=== PATIENT | female | born 1945 | race Caucasian/White ===

== ENCOUNTER 2019-04-03 19:30 | Outpatient (RCR) | payer MEDICARE, OTHER, MEDICAID, SELFPAY ==
[2019-04-03 20:14] LABS: Influenza A by IFA Negative (Negative); Influenza B by IFA Negative (Negative)
== END 2019-04-06 23:59 | disposition home or self-care (01) ==
LOC: LAB 19:30
PROVIDERS: Family Provider Internal Medicine; PCP Internal Medicine; Visit Provider Internal Medicine
DX: R50.9 Fever, unspecified (principal)
CPT/HCPCS: 87804

== ENCOUNTER → 2021-03-08 09:45 | Outpatient (BNVA) | payer MEDICARE, OTHER, MEDICAID, SELFPAY | PROVIDERS: Family Provider Internal Medicine; PCP Internal Medicine; Visit Provider Internal Medicine Rheumatology | DX: M25.50 Pain in unspecified joint (principal); J34.0 Abscess, furuncle and carbuncle of nose; R76.8 Other specified abnormal immunological findings in serum; Z79.899 Other long term (current) drug therapy; E66.01 Morbid (severe) obesity due to excess calories; Z87.891 Personal history of nicotine dependence | CPT/HCPCS: 99204 ==

== ENCOUNTER → 2021-05-12 11:02 | Outpatient (BNVA) | payer MEDICARE, OTHER, MEDICAID, SELFPAY | PROVIDERS: Family Provider Internal Medicine; PCP Internal Medicine; Visit Provider Internal Medicine Rheumatology | DX: M19.90 Unspecified osteoarthritis, unspecified site (principal); M35.00 Sjogren syndrome, unspecified; R70.0 Elevated erythrocyte sedimentation rate; R79.82 Elevated C-reactive protein (CRP); J44.9 Chronic obstructive pulmonary disease, unspecified; E66.01 Morbid (severe) obesity due to excess calories; Z68.42 Body mass index [BMI] 45.0-49.9, adult; Z99.81 Dependence on supplemental oxygen | CPT/HCPCS: 99214 ==

== ENCOUNTER → 2021-09-08 11:00 | Outpatient (BNVA) | payer MEDICARE, OTHER, MEDICAID, SELFPAY | PROVIDERS: Family Provider Internal Medicine; PCP Internal Medicine; Visit Provider Internal Medicine Rheumatology | DX: M19.90 Unspecified osteoarthritis, unspecified site (principal); M35.00 Sjogren syndrome, unspecified; R70.0 Elevated erythrocyte sedimentation rate; R79.82 Elevated C-reactive protein (CRP); E66.01 Morbid (severe) obesity due to excess calories | CPT/HCPCS: 99214 ==

== ENCOUNTER 2022-08-01 11:57 | Emergency (ER) | payer MEDICARE, OTHER, MEDICAID, SELFPAY ==
[2022-08-01 11:53] VITALS: BP 115/57; PULSE 107; RESP 19; TEMP 36.9; O2SAT 95; BMI 48.7
--- NOTE | 2022-08-01 11:57 | W.ED.GENADLT ---
HPI - General Adult General: Chief complaint: Arrhythmia/Palpitations Stated complaint: HIGH HR Source: patient Mode of arrival: ambulatory History of Present Illness: 77-year-old female who presents to the emergency room with complaints of rapid heart rate. This morning she evidently at the [facility] had a heart rate in the 160s to 170s her attending was called and directed her to the emergency room by the time EMS arrived when she arrived here her heart rate was right around 100 and remained there throughout the visit. She is completely asymptomatic she denies any orthopnea or any PND any chest pain no dysuria urgency or frequency she has been treated for UTI recently. She received all of her medications routinely this morning. Onset (ago): minute(s) Relieving factors: none Exacerbating factors: none Associated symptoms: Deny chest pain, confusion, cough, diaphoresis, decreased appetite, dyspnea, fevers/chills, headache(s), malaise, nausea, rash, palpitations, seizures, short of breath, syncope, vomiting or weakness Treatments prior to arrival: none Review of Systems Const: Denies: fever(s), chills, malaise or diaphoresis ENMT: Denies: throat pain, ear or mastoid pain, nasal discharge or nasal congestion Card: Denies: chest pain, palpitations or syncope Resp: Denies: dyspnea GI: Denies: nausea or vomiting : Denies: flank pain, difficulty voiding, dysuria, urinary frequency or urinary urgency Skin/Breast: Denies: rash Neuro: Denies: headache(s) or confusion PFSH ED PFSH: Medical History Asthma CHF (congestive heart failure) CKD (chronic kidney disease) stage II Depression Dry eye syndrome Elevated C-reactive protein Elevated erythrocyte sedimentation rate GERD (gastroesophageal reflux disease) HTN (hypertension) Hyperlipidemia Hypothyroid Inflammatory arthritis Morbid obesity Nasal septal ulcer MARKEL (obstructive sleep apnea) Polyarthralgia Positive NORBERT (antinuclear antibody) Primary Sjogren's syndrome Rhinitis Sleep apnea Surgical History History of cholecystectomy History of hip replacement History of hysterectomy Social History Smoking and tobacco status: never smoked Physical Exam Const: GENERAL APPEARANCE: cooperative and comfortable ORIENTATION/CONSCIOUSNESS: Yes awake, Yes oriented to person, Yes oriented to place and Yes oriented to time HENMT: COMMON NORMALS: normocephalic, atraumatic and hearing grossly normal bilaterally HEAD & SCALP: normocephalic and atraumatic Resp: COMMON NORMALS: normal respiratory effort, No retractions, No use of accessory muscles and clear to auscultation bilaterally AUSCULTATION: clear to auscultation bilaterally Cardio: COMMON NORMALS: regular rate, regular rhythm and No murmurs present (Cardio) RATE: regular rate RHYTHM: regular rhythm GI: COMMON NORMALS: Soft to palpation and No hepatosplenomegaly present AUSCULTATION: Yes normoactive bowel sounds PALPATION: Yes Soft to palpation, No Tenderness to palpation present (GI), No Guarding due to palpation present (GI) and Yes No hepatosplenomegaly present Extremity: COMMON NORMALS: normal to inspection, capillary refill normal and no calf tenderness GENERAL: Yes edema (2+ lower extremity) Neuro: SENSORIUM/ORIENTATION: Yes oriented to person, Yes oriented to place and Yes oriented to time Skin: COMMON NORMALS: no rashes or lesions noted GENERAL SKIN EXAM: no rashes or lesions noted Course Vital Signs: Vital signs: Vital Signs Temperature 98.5 F 08/01/22 11:53 Pulse Rate 90 08/01/22 12:56 Respiratory Rate 24 H 08/01/22 12:56 Blood Pressure 125/62 08/01/22 12:56 Pulse Oximetry 97 08/01/22 12:56 Oxygen Delivery Me thod Nasal Cannula 08/01/22 12:56 Oxygen Flow Rate 3 08/01/22 12:56 [facility] - General Adult Medical Decision Making Exam unremarkable heart rate is remained well controlled infection improve the longer she was here she is doing well at this point no further symptoms we will discharge patient home with a 48-hour Holter monitor to see if she is having any kind of breakthrough arrhythmias. Her TSH was slightly elevated we will bump her Synthroid to 100 mcg daily. Follow-up through the [facility] with her attending doctor. Medical Records I reviewed the patient's medical records. Lab Data I reviewed the patient's lab results. 08/01/22 12:00 08/01/22 12:00 Radiology Impressions Chest X-Ray 08/01/22 12:17 IMPRESSION: Stable chest radiograph. No pneumonia. Laboratory Results WBC 7.5 10^3/uL (4.0-10.0) 08/01/22 12:00 RBC 4.10 10^6/uL (4.1-5.3) 08/01/22 12:00 Hgb 12.0 g/dL (11.5-15.3) 08/01/22 12:00 Hct 39.7 % (37.0-47.0) 08/01/22 12:00 MCV 96.8 fl (81-99) 08/01/22 12:00 MCH 29.3 pg (28.0-34.0) 08/01/22 12:00 MCHC 30.2 g/dL (30.0-36.0) 08/01/22 12:00 RDW 13.7 % (12.1-15.1) 08/01/22 12:00 Plt Count 309 10^3/cmm (130-400) 08/01/22 12:00 MPV 9.8 fL (7.4-10.4) 08/01/22 12:00 Neut % (Auto) 61.4 % 08/01/22 12:00 Lymph % (Auto) 26.7 % 08/01/22 12:00 [place] % (Auto) 8.7 % 08/01/22 12:00 Eos % (Auto) 2.7 % 08/01/22 12:00 Baso % (Auto) 0.1 % 08/01/22 12:00 Neut # (Auto) 4.59 10^3/uL (1.8-7.7) 08/01/22 12:00 Lymph # (Auto) 2.0 10^3/uL (0.8-4.8) 08/01/22 12:00 [place] # (Auto) 0.7 10^3/uL (0.2-0.9) 08/01/22 12:00 Eos # (Auto) 0.2 10^3/uL (0.0-0.8) 08/01/22 12:00 Baso # (Auto) 0.0 10^3/uL (0.0-0.1) 08/01/22 12:00 Nucleated RBC % (auto) 0 % 08/01/22 12:00 Nucleated RBCs # 0.0 /100WBC 08/01/22 12:00 Sodium 140 mmol/L (136-145) 08/01/22 12:00 Potassium 4.1 mmol/L (3.5-5.1) 08/01/22 12:00 Chloride 99 mmol/L (98-107) 08/01/22 12:00 Carbon Dioxide 34 mmol/L (22-29) H 08/01/22 12:00 Anion Gap 11.1 (5-19) 08/01/22 12:00 BUN 11 mg/dL (8-23) 08/01/22 12:00 Creatinine 0.7 mg/dL (0.5-0.9) 08/01/22 12:00 GFR Calculation Not Reportable 08/01/22 12:00 Glucose 121 mg/dL (65-115) H 08/01/22 12:00 Calculated Osmolality 291 mOsm/kg (285-295) 08/01/22 12:00 Calcium 9.0 mg/dL (8.5-10.5) 08/01/22 12:00 Total Bilirubin 0.3 mg/dL (0.15-1.2) 08/01/22 12:00 AST 25 U/L (0-32) 08/01/22 12:00 ALT 8 U/L (0-33) 08/01/22 12:00 Alkaline Phosphatase 160 U/L (35-105) H 08/01/22 12:00 Troponin T Baseline 21 ng/L (0-10) H 08/01/22 12:00 Troponin T 120 Minute 23.11 ng/L (0-10) H 08/01/22 14:37 Delta Troponin T 2.11 ABS# (0-10) 08/01/22 14:37 NT-Pro-B Natriuret Pep 592 pg/mL (0-450) H 08/01/22 12:00 Total Protein 6.8 g/dL (6.6-8.7) 08/01/22 12:00 Albumin 3.3 g/dL (3.5-5.2) L 08/01/22 12:00 Globulin 3.5 g/dL (1.3-4.6) 08/01/22 12:00 TSH 6.04 uIU/mL (0.27-4.20) H 08/01/22 12:00 Urine Color Light yellow (Yellow) 08/01/22 13:49 Urine Appearance Clear (CLEAR) 08/01/22 13:49 Urine pH 7 (5-7) 08/01/22 13:49 Ur Specific [place] 1.010 (1.005-1.030) 08/01/22 13:49 Urine Protein Neg (Negative) 08/01/22 13:49 Urine Glucose (UA) Norm (Normal) 08/01/22 13:49 Urine Ketones Negative (Negative) 08/01/22 13:49 Urine Blood Neg (Negative) 08/01/22 13:49 Urine Nitrate Negative (Negative) 08/01/22 13:49 Urine Bilirubin Neg (Negative) 08/01/22 13:49 Urine Urobilinogen Norm mg/dL (Negative) 08/01/22 13:49 Ur Leukocyte Esterase Negative (Negative) 08/01/22 13:49 Discharge Plan Discharge Patient Disposition: Home Clinical Impression: Sinus tachycardia, Hypothyroidism Condition: Stable Prescriptions: New Synthroid 100 mcg tablet 100 mcg PO DAILY Qty: 30 0RF Discontinued levothyroxine 88 mcg tablet 88 mcg PO DAILY@06 No Action fluticasone propionate [Allergy Relief (fluticasone)] 50 mcg/actuation spray,suspension 1 spray intranasal BID@ Rx Instructions: administer into each nostril Breo Ellipta 200-25 mcg/dose blister with device 1 inh inhalation DAILY@07 duloxetine 60 mg capsule,delayed release(DR/EC) 60 mg PO DAILY@19 hydroxyzine HCl 25 mg tablet 25 mg PO Q6H PRN (Reason: Itching) metoprolol succinate 100 mg tablet extended release 24 hr 100 mg PO DAILY@07 Tylenol 325 mg Tablet 650 mg PO Q6H PRN (Reason: Pain) Miralax 17 gram Powder In Packet 17 g PO DAILY@07 Zofran 4 mg Tablet 4 mg PO Q6H PRN (Reason: Nausea And Vomiting) simvastatin 5 mg Tablet 5 mg PO DAILY@19 Protonix 40 mg Tablet,Delayed Release (Dr/Ec) 40 mg PO DAILY@07 [place] Nasal 0.65 % Aerosol,[place] 1 spray INTRANASAL BID@, melatonin 1 mg Tablet 1 mg PO BEDTIME@ levocetirizine 5 mg Tablet 5 mg PO DAILY@07 Natural Balance Tears 0.1-0.3 % Drops 1 drp OPHTHALMIC (EYE) Q8H PRN (Reason: Dry Eye(S)) Rx Instructions: both eyes Discharge Orders: Discharge ED (Routine); Ordered 08/01/22 Ordered By: Piyush Maravilla Referrals: Josh Falk MD [Primary Care Provider] - Discharge Diet: Usual diet Discharge Activity: Resume usual activity Patient Instructions: Opioid Safety, Pain Management Activity Restrictions/Additional Instructions: Case management will set up an outpatient 48-hour Holter monitor. We did increase your Synthroid Dr. Falk will follow-up with that in the [facility] in 6 to 8 weeks to recheck your thyroid levels Coding Level of Care Code ED Online Affiliate Marketing Manager for [facility]
--- NOTE | 2022-08-01 12:02 | ECG_ITS ---
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 Measurements Intervals [place] Rate: 102 P: 54 TN: 148 QRS: 17 QRSD: 74 T: 66 QT: 348 QTc: 454 Interpretive Statements SINUS TACHYCARDIA LOW QRS VOLTAGE IN PRECORDIAL LEADS [QRS DEFLECTION < 1.0 mV IN CHEST LEADS] Compared to ECG 09/11/2017 16:54:50 Sinus rhythm no longer present Electronically Signed On 08-01-2022 17:23:46 CDT by Abdoul Desai M.D. [id number]
[2022-08-01 12:06] VITALS: BP 93/72; PULSE 103; RESP 20; O2SAT 95
[2022-08-01 12:06] LABS: Basophils % 0.1 %; Eosinophils # 0.2 10^3/uL (0.0-0.8); Eosinophils % 2.7 %; Hematocrit 39.7 % (37.0-47.0); Lymphocytes % 26.7 %; Mean Corpuscular HGB Conc 30.2 g/dL (30.0-36.0); Mean Corpuscular Hemoglobin 29.3 pg (28.0-34.0); Mean Corpuscular Volume 96.8 fl (81-99); Mean Platelet Volume 9.8 fL (7.4-10.4); Monocytes # 0.7 10^3/uL (0.2-0.9); Monocytes % 8.7 %; Neutrophils # 4.59 10^3/uL (1.8-7.7); Neutrophils % 61.4 %; Nucleated Red Blood Cells % 0 %; Platelet Count 309 10^3/cmm (130-400); Red Cell Distribution Width 13.7 % (12.1-15.1); White Blood Count 7.5 10^3/uL (4.0-10.0)
--- NOTE | 2022-08-01 12:17 | XR_ITS ---
WS: [id number] PORTABLE CHEST HISTORY: dyspnea/cough COMPARISON: 09/13/2017 Hyperinflated lungs. Patient is imaged in a lordotic projection. No pneumonia. Lungs are clear and well expanded. No pleural effusion or pneumothorax. Cardiac size: Heart appears enlarged but this is probably exacerbated by lordotic positioning of the patient. Mediastinum/Aorta: Mild atherosclerosis aorta. No osseous abnormality seen. XR/XR chest 1V portable 25211 IMPRESSION: Stable chest radiograph. No pneumonia.
[2022-08-01 12:32] LABS: Alanine Aminotransferase 8 U/L (0-33); Albumin Level 3.3 g/dL (3.5-5.2); Alkaline Phosphatase 160 U/L (35-105); Anion Gap 11.1 (5-19); Aspartate Amino Transferase 25 U/L (0-32); Blood Urea Nitrogen 11 mg/dL (8-23); Carbon Dioxide 34 mmol/L (22-29); Chloride 99 mmol/L (98-107); Globulin 3.5 g/dL (1.3-4.6); Glucose 121 mg/dL (65-115); Osmolality Calculated 291 mOsm/kg (285-295); Potassium 4.1 mmol/L (3.5-5.1); Sodium 140 mmol/L (136-145); Thyroid Stimulating Hormone 6.04 uIU/mL (0.27-4.20); Total Bilirubin 0.3 mg/dL (0.15-1.2); Total Protein 6.8 g/dL (6.6-8.7)
[2022-08-01 12:51] LABS: NT Pro B Type Natriuretic Pept 592 pg/mL (0-450)
[2022-08-01 12:56] VITALS: BP 125/62; PULSE 90; RESP 24; O2SAT 97
[2022-08-01 13:09] LABS: Troponin(5th) Baseline 21 ng/L (0-10)
--- NOTE | 2022-08-01 13:50 | PC.PHAR ---
pt is from [facility] [phone]
[2022-08-01 14:02] LABS: Add Urine Microscopic? NO; Charge for UA Resulting for Rev
[2022-08-01 14:07] LABS: Bilirubin Urine Neg (Negative); Blood Urine Neg (Negative); Glucose Urine UA Norm (Normal); Ketones Urine Negative (Negative); Leukocyte Esterase Urine Negative (Negative); Nitrate Urine Negative (Negative); Protein Urine Neg (Negative); Urine Appearance Clear (CLEAR); Urine Color Light yellow (Yellow); Urobilinogen Urine Norm (Negative); pH Urine 7 (5-7)
--- NOTE | 2022-08-01 14:36 | ECG_ITS ---
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 Measurements Intervals [place] Rate: 76 P: 139 [place]: 149 QRS: 35 QRSD: 87 T: 124 QT: 399 QTc: 449 Interpretive Statements ECTOPIC ATRIAL RHYTHM POSSIBLE LEFT ATRIAL ENLARGEMENT [-0.1mV P-WAVE IN V1/V2] LOW QRS VOLTAGE [QRS DEFLECTION < 0.5/1.0 mV IN LIMB/CHEST LEADS] ABNORMAL QRS-T ANGLE [QRS-T AXIS DIFFERENCE > 60] Compared to ECG 08/01/2022 12:02:29 Ectopic atrial rhythm now present Sinus tachycardia no longer present Electronically Signed On 08-01-2022 17:24:56 CDT by Abdoul Desai M.D. [id number]
[2022-08-01 14:58] LABS: Troponin 5 2HR 23.11 ng/L (0-10)
[2022-08-01 15:00] LABS: Troponin 5 2HR Delta 2.11 ABS# (0-10)
--- NOTE | 2022-08-01 15:57 | PC.SOCIAL ---
Addendum entered by Xenia Mcdonald 09/01/22 07:29: Patient had a follow up appointment with heart care - patient did attend appointment Addendum entered by Xenia Mcdonald 08/18/22 14:53: Patient has a follow up appointment scheduled for Tuesday, August 30, 2022 at 10:00 at [facility]. Original Note: Holter Monitor Orders sent to heart care at this time. Clinic to contact [facility] with appt date/time.
== END 2022-08-01 15:32 | disposition home or self-care (01) ==
PROVIDERS: Emergency Provider Family Medicine; PCP Internal Medicine
DX: R00.0 Tachycardia, unspecified (principal); E03.9 Hypothyroidism, unspecified; I13.0 Hypertensive heart and chronic kidney disease with heart failure and stage 1 through stage 4 chronic kidney disease, or unspecified chronic kidney disease; N18.2 Chronic kidney disease, stage 2 (mild); I50.9 Heart failure, unspecified; E78.5 Hyperlipidemia, unspecified
CPT/HCPCS: 51701; 71045; 80053; 81003; 83880; 84443; 84484; 85025; 93005; 99285

== ENCOUNTER → 2022-08-29 14:24 | Outpatient (BNVA) | payer MEDICARE, OTHER, MEDICAID, SELFPAY | PROVIDERS: PCP Internal Medicine; Visit Provider Internal Medicine | DX: R00.0 Tachycardia, unspecified (principal); I49.1 Atrial premature depolarization; I49.3 Ventricular premature depolarization | CPT/HCPCS: 93242 ==

== ENCOUNTER 2023-04-27 13:55 | Emergency (ER) | payer MEDICARE, OTHER, MEDICAID, SELFPAY ==
[2023-04-27] VITALS (13 sets, daily range): BP systolic 105–157; BP diastolic 74–107; PULSE 95–220; RESP 16–29; TEMP 36.7; O2SAT 90–99
--- NOTE | 2023-04-27 14:00 | ECG_ITS ---
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 Measurements Intervals [place] Rate: 217 P: 0 MD: 0 QRS: 2 QRSD: 88 T: 163 QT: 197 QTc: 374 Interpretive Statements Possible atrial fibrillation with rapid ventricular rate LOW QRS VOLTAGE IN PRECORDIAL LEADS [QRS DEFLECTION < 1.0 mV IN CHEST LEADS] NONSPECIFIC ST & T-WAVE ABNORMALITY CRITICAL TEST RESULT Compared to ECG 08/01/2022 14:50:21 T-wave abnormality now present Ectopic atrial rhythm no longer present Electronically Signed On 04-27-2023 22:12:27 CDT by Freya Wolff M.D. [id number]
--- NOTE | 2023-04-27 14:07 | W.ED.CHESTPA ---
Documented by User: Piyush Maravilla DO 04/28/23 06:48 HPI - Chest Pain General: Chief Complaint: Chest Pain Stated Complaint: chest pain Time Seen by Provider: 04/27/23 13:57 Source: patient Mode of arrival: EMS History of Present Illness: 78-year-old female presents emergency room via EMS in A-fib rapid ventricular response. She is [facility] in from a prison rate is in the 200-2 20 range. They did do adenosine in the field to 6 and 12 slow the rate down reviewed the rhythm strips look like she had an underlying A-fib flutter. She is complaining of some shortness of breath mild chest discomfort. She was seen in July of last year with a sinus tachycardia. At that time the rate at the highest was a little over 100. Holter monitor done after that showed some rates near 170 but no persistent arrhythmias. Reviewing her medication list she is on metoprolol but she is not on any oral anticoagulants. MD complaint: chest pain Onset (ago): unknown Timing of current episode: constant Prior episodes: Yes Onset: during rest Pain location: substernal Pain radiation: none Relieving factors: nothing Exacerbating factors: nothing Associated symptoms: Reports abdominal pain, dyspnea, nausea and palpitations; Deny fever(s), leg edema, sense of impending doom or vomiting Treatment prior to arrival: none Review of Systems Const: Reports: fatigue and malaise; Denies: fever(s) or chills Card: Reports: chest pain, palpitations, irregular heart rhythm and edema Resp: Reports: dyspnea GI: Reports: abdominal pain and nausea; Denies: vomiting, hematemesis, coffee ground emesis, hematochezia or melena : Reports: oliguria; Denies: flank pain, dysuria, urinary frequency or urinary urgency Musc: Denies: neck pain or back pain Skin/Breast: Denies: rash PFSH ED PFSH: Medical History Elevated C-reactive protein Elevated erythrocyte sedimentation rate Inflammatory arthritis Primary Sjogren's syndrome Nasal septal ulcer Morbid obesity Polyarthralgia Positive NORBERT (antinuclear antibody) Rhinitis CKD (chronic kidney disease) stage II Dry eye syndrome GERD (gastroesophageal reflux disease) Sleep apnea CHF (congestive heart failure) HTN (hypertension) Hypothyroid Hyperlipidemia Asthma Depression MARKEL (obstructive sleep apnea) Surgical History History of hip replacement History of hysterectomy History of cholecystectomy Social History Smoking and tobacco/nicotine status: never used tobacco/nicotine Physical Exam Const: GENERAL APPEARANCE: cooperative NUTRITIONAL APPEARANCE: obese ORIENTATION/CONSCIOUSNESS: Yes awake HENMT: COMMON NORMALS: normocephalic, atraumatic and hearing grossly normal bilaterally HEAD & SCALP: normocephalic and atraumatic Resp: COMMON NORMALS: normal respiratory effort, No retractions and No use of accessory muscles AUSCULTATION: wheezes (mild) Cardio: RATE: tachycardic RHYTHM: abnormal rhythm irregularly irregular GI: COMMON NORMALS: No hepatosplenomegaly present AUSCULTATION: Yes normoactive bowel sounds PALPATION: Yes Tenderness to palpation present (GI) (epigastric), No Guarding due to palpation present (GI) and Yes No hepatosplenomegaly present : COMMON NORMALS: Yes no CVA tenderness BLADDER/KIDNEY EXAM: Yes no CVA tenderness Back/Pelvis: COMMON NORMALS: no CVA tenderness Extremity: COMMON NORMALS: normal to inspection, capillary refill normal, no clubbing, cyanosis or edema, no calf tenderness and no pedal edema Skin: COMMON NORMALS: no rashes or lesions noted GENERAL SKIN EXAM: no rashes or lesions noted Course Vital Signs: Vital signs: Vital Signs Temperature 98.1 F 04/27/23 13:55 Pulse Rate 103 H 04/27/23 20:20 Respiratory Rate 29 H 04/27/23 20:20 Blood Pressure 156/103 04/27/23 20:20 Pulse Oximetry 97 04/27/23 20:20 Oxygen Delivery Me thod Nasal Cannula 04/27/23 20:20 Oxygen Flow Rate 4 04/27/23 20:20 MDM - Chest Pain Medical Decision Making Patient presents afebrile with a heart rate in the 200s. EMS had given adenosine which slowed the rate briefly and exposing underlying A-fib flutter rhythm. Patient was given Cardizem which did improve her rate but never did completely control it she was later switched to amiodarone. Patient's blood pressure initially was elevated then become somewhat softer. Considered giving epi however her map remained above 65. As lab work began to return showed a significant leukocytosis and elevation of her lipase transaminases and T. bili. She also mild acute kidney injury. Lactic acid was drawn and was elevated as well. BNP was markedly elevated. Given her heart rate and difficulty controlling the A-fib rate was concerned about pushing her further into congestive heart failure so a modified sepsis fluid bolus was given. Patient was mildly confused at time family members at the bedside assisted with decision making. They want to keep the patient is a full code. We did attempt to get an MRCP however logistically she did not fit in the EMR tube and we are unable to do so. She had significant gaseous distention her abdomen so we could not get an ultrasound of the common bile duct. CT did show mild dilation of the bile common bile duct. Patient is obviously septic she has been cultured and started on IV antibiotics. She has not required Levophed to this point. She did require some oxygen. After discussion with the family they do wish to keep the patient on full code and want to transfer the patient as we suggested for more definitive care. We initially contacted [facility] emergency they did not have beds available. At change of shift I [facility] the [facility] is working on other transfer options. Care signed out to Dr. Foster at change of shift. See final notes for diagnosis and disposition. I have discussed the patient's case with the off going physician <Dr. Maravilla> and I have assumed care of the patient. We have discussed the current lab/radiographic results that have been resulted and the pending tests. Patient initially presented to the emergency department and was seen by Dr. Maravilla. Patient was upon arrival from EMS personnel and atrial fibrillation with rapid ventricular response with a heart rate in the 220s. It does appear that she was initially provided Cardizem bolus and Cardizem drip with minimal improvement and switch to amiodarone which is currently infusing. Laboratory evaluation was obtained and there is concern for perinephric fluid and pancreatitis. The patient does have a significantly elevated white blood cell count of 43.63, she also has a elevated platelets at 538 and an initial lactic acid of 6.4. CMP demonstrated elevated total bilirubin at 4.6, AST of 46 ALT 44 alkaline phosphatase of 477, and a lipase level of 194. A Loya catheter was placed and it does not appear that the patient has produced any significant urine since the placement of the patient's Loya catheter. Her creatinine is elevated from previous on review of her medical records and today is currently 1.8 whereas previously it was 0.7. A CT scan of the abdomen pelvis was obtained and had findings consistent with peripancreatic edema and pancreatitis. An ultrasound was obtained and there was concern for ductal dilatation at 16 mm patient has had a previous cholecystectomy I suspect most likely of the ductal dilatation is insignificant and resultant from her previous cholecystectomy and age. Given the previous findings there was concern for sepsis with endorgan damage i.e. acute renal failure and the patient was provided 2 L conservative IV fluid replacement instead of 4 L per the sepsis guidelines. Patient was also provided vancomycin and meropenem for antibiotic therapy. The patient has previous antibiotic allergies of erythromycin, levofloxacin and penicillin--with resultant urticaria. Reexamination of the patient after initiation of amiodarone does demonstrate improved heart rate at 106. The patient's blood pressure has been continually maintained and her mean arterial pressure has been appropriate in regards to perfusion. Cardiac enzymes were obtained as well as a proBNP and the proBNP did demonstrate a level of 33 681 most likely secondary to her atrial fibrillation with rapid ventricular response. Dr. Maravilla initially contacted [facility] in [facility] and was advised that there were no beds available. A follow-up call to [facility] was placed and upon my arrival here to the emergency department at 1800 he had not received a return call from [facility]. I did request that we contact [facility] in [facility] and I spoke with Dr. Lewis who accepted the patient to the medical intensive care unit on behalf of Dr. Sanchez. Medical Records I reviewed the patient's medical records. Lab Data I reviewed the patient's lab results. 04/27/23 14:33 04/27/23 14:33 Radiology Impressions Abdomen/Pelvis CT 04/27/23 15:46 IMPRESSION: 1. Peripancreatic edema and nonlocalized fluid consistent with pancreatitis. 2. Diverticulosis without diverticulitis. 3. Left hip arthroplasty changes. 4. Loya catheter in the urinary bladder 5. Coronary artery atherosclerotic calcifications. 6. Emphysematous changes. 7. Bibasilar atelectasis versus infiltrate. 8. Cholecystectomy. ADDENDUM: 04/27/23 [id number] Findings reviewed on the phone with Dr Maravilla. We discussed the common bile duct is prominent at 16 mm. This may be due to a combination of patient age and cholecystectomy. Ultrasound and/or MRCP could further characterize this as clinically indicated. Exam appears negative for obstructing lesion. Laboratory Results WBC 43.63 10^3/uL (3.29-11.43) H* 04/27/23 14:33 RBC 5.31 10^6/uL (3.85-5.65) 04/27/23 14:33 Hgb 15.90 g/dL (11.27-16.99) 04/27/23 14:33 Hct 51.1 % (36-47) H 04/27/23 14:33 MCV 96.2 fl (85-98) 04/27/23 14:33 MCH 29.9 pg (27-33) 04/27/23 14:33 MCHC 31.1 g/dL (30-55) 04/27/23 14:33 RDW 14.8 % (12.1-15.1) 04/27/23 14:33 Plt Count 538 10^3/cmm (157-399) H 04/27/23 14:33 MPV 10.3 fL (7.4-10.4) 04/27/23 14:33 Neut % (Auto) 83.3 % 04/27/23 14:33 Lymph % (Auto) 5.1 % 04/27/23 14:33 Wharton % (Auto) 7.0 % 04/27/23 14:33 Eos % (Auto) 0.0 % 04/27/23 14:33 Baso % (Auto) 0.3 % 04/27/23 14:33 Neut # (Auto) 36.34 10^3/uL (1.8-7.7) H 04/27/23 14:33 Lymph # (Auto) 2.2 10^3/uL (0.8-4.8) 04/27/23 14:33 Wharton # (Auto) 3.1 10^3/uL (0.2-0.9) H 04/27/23 14:33 Eos # (Auto) 0.0 10^3/uL (0.0-0.8) 04/27/23 14:33 Baso # (Auto) 0.1 10^3/uL (0.0-0.1) 04/27/23 14:33 Nucleated RBC % (auto) 0 % 04/27/23 14:33 Nucleated RBCs # 0.0 /100WBC 04/27/23 14:33 Sodium 136 mmol/L (136-145) 04/27/23 14:33 Potassium 4.1 mmol/L (3.5-5.1) 04/27/23 14:33 Chloride 92 mmol/L (98-107) L 04/27/23 14:33 Carbon Dioxide 23 mmol/L (22-29) 04/27/23 14:33 Anion Gap 25.1 (5-19) H 04/27/23 14:33 BUN 21 mg/dL (8-23) 04/27/23 14:33 Creatinine 1.8 mg/dL (0.5-0.9) H 04/27/23 14:33 GFR Calculation Not Reportable 04/27/23 14:33 Glucose 163 mg/dL (65-115) H 04/27/23 14:33 Calculated Osmolality 289 mOsm/kg (285-295) 04/27/23 14:33 Lactic Acid 6.4 mmol/L (0.5-2.2) H* 04/27/23 14:33 Lactic Acid (Sepsis) 4.1 mmol/L (0.5-2.2) H* 04/27/23 18:42 Calcium 9.0 mg/dL (8.5-10.5) 04/27/23 14:33 Magnesium 1.9 mg/dL (1.7-2.3) 04/27/23 14:33 Total Bilirubin 4.6 mg/dL (0.15-1.2) H 04/27/23 14:33 AST 46 U/L (0-32) H 04/27/23 14:33 ALT 44 U/L (0-33) H 04/27/23 14:33 Alkaline Phosphatase 477 U/L (35-105) H 04/27/23 14:33 Troponin T Baseline 28 ng/L (0-10) H 04/27/23 14:33 Troponin T 120 Minute 29.88 ng/L (0-10) H 04/27/23 17:25 Delta Troponin T 1.88 ABS# (0-10) 04/27/23 17:25 NT-Pro-B Natriuret Pep 62224 pg/mL (0-450) H 04/27/23 14:33 Total Protein 6.6 g/dL (6.6-8.7) 04/27/23 14:33 Albumin 3.3 g/dL (3.5-5.2) L 04/27/23 14:33 Globulin 3.3 g/dL (1.3-4.6) 04/27/23 14:33 Lipase 194 U/L (13-60) H 04/27/23 14:33 Discharge Plan Discharge Patient Disposition: Xfer Short-Term Hosp Clinical Impression: Sepsis, Atrial fibrillation with rapid ventricular response, Acute renal failure, Acute pancreatitis, Congestive heart failure Condition: Stable Referrals: Josh Falk MD [Primary Care Provider] - Coding Level of Care Code ED Glass Rolling Machine Operator for Chg Fwd Documented by User: Nirmal Foster MD 04/27/23 20:11 HPI - Chest Pain General: Chief Complaint: Chest Pain Stated Complaint: chest pain Time Seen by Provider: 04/27/23 13:57 History of Present Illness: Associated symptoms: Reports abdominal pain, nausea and palpitations Review of Systems General: Reports: 10 or more systems reviewed and unremarkable except in HPI and below Const: Reports: fatigue and malaise Card: Reports: chest pain, palpitations, irregular heart rhythm and edema GI: Reports: abdominal pain and nausea [facility] ED PFSH: Medical History Elevated C-reactive protein Elevated erythrocyte sedimentation rate Inflammatory arthritis Primary Sjogren's syndrome Nasal septal ulcer Morbid obesity Polyarthralgia Positive NORBERT (antinuclear antibody) Rhinitis CKD (chronic kidney disease) stage II Dry eye syndrome GERD (gastroesophageal reflux disease) Sleep apnea CHF (congestive heart failure) HTN (hypertension) Hypothyroid Hyperlipidemia Asthma Depression MARKEL (obstructive sleep apnea) Surgical History History of hip replacement History of hysterectomy History of cholecystectomy Social History Smoking and tobacco/nicotine status: never used tobacco/nicotine Physical Exam Narrative: EXAM NARRATIVE: Constitutional: the patient appears well nourished and with normal development. Vital signs reviewed as documented. Stable at present, ill-appearing, HENMT: Normocephalic, atraumatic. External ears normal appearance without drainage. Nose without drainage, normal appearance. Mucus membranes moist. Neck is supple, No jugular venous distension, trachea is midline, no appreciable carotid bruits. No lymphadenopathy. No meningeal signs. Flexion, extension and lateral rotation is without pain. Eyes: Pupils are equal, round, reactive to light and accommodation. No scleral icterus. Extra-ocular movement are intact. Thorax is symmetrical and with equal rise and fall with respirations. Resp: Decreased bilaterally in the bases, faint crackles throughout.. Cardio: Atrial fibrillation with rapid ventricular response. . Positive S1, S2. No appreciable murmurs, rubs or gallops. GI: Abdominal exam reveals normal bowel sounds to all quadrants. No organomegaly. No obvious palpable masses noted. No hepatomegally appreciated. Soft, tender to palpation to the epigastric region. Extremity: Extremities are with doughy edema and both femoral and pedal pulses are 2+ and equal bilaterally. Moves all extremities well, sensation in all extremities. Neuro: Alert and oriented x4, person, place, time and situation. Cranial nerves II through XII are grossly intact, there is no focal neurological deficits that I can appreciate at present. Sensation intact to all extremities. 2-point discrimination intact. Light touch intact to all extremities. Motor strength in the upper and lower extremities are equal and bilateral 5/5. Psych: Cooperative, calm, normal thought process, appropriate judgment. Skin: No lesions, rashes. No gross abnormalities noted. Back: Symmetrical, no obvious deformity, No CVA tenderness Course Vital Signs: Vital signs: Vital Signs Temperature 98.1 F 04/27/23 13:55 Pulse Rate 103 H 04/27/23 20:20 Respiratory Rate 29 H 04/27/23 20:20 Blood Pressure 156/103 04/27/23 20:20 Pulse Oximetry 97 04/27/23 20:20 Oxygen Delivery Me thod Nasal Cannula 04/27/23 20:20 Oxygen Flow Rate 4 03/21/24 20:20 MDM - Chest Pain Medical Decision Making I have discussed the patient's case with the off going physician <Dr. Maravilla> and I have assumed care of the patient. We have discussed the current lab/radiographic results that have been resulted and the pending tests. Patient initially presented to the emergency department and was seen by Dr. Maravilla. Patient was upon arrival from EMS personnel and atrial fibrillation with rapid ventricular response with a heart rate in the 220s. It does appear that she was initially provided Cardizem bolus and Cardizem drip with minimal improvement and switch to amiodarone which is currently infusing. Laboratory evaluation was obtained and there is concern for perinephric fluid and pancreatitis. The patient does have a significantly elevated white blood cell count of 43.63, she also has a elevated platelets at 538 and an initial lactic acid of 6.4. CMP demonstrated elevated total bilirubin at 4.6, AST of 46 ALT 44 alkaline phosphatase of 477, and a lipase level of 194. A Loya catheter was placed and it does not appear that the patient has produced any significant urine since the placement of the patient's Loya catheter. Her creatinine is elevated from previous on review of her medical records and today is currently 1.8 whereas previously it was 0.7. A CT scan of the abdomen pelvis was obtained and had findings consistent with peripancreatic edema and pancreatitis. An ultrasound was obtained and there was concern for ductal dilatation at 16 mm patient has had a previous cholecystectomy I suspect most likely of the ductal dilatation is insignificant and resultant from her previous cholecystectomy and age. Given the previous findings there was concern for sepsis with endorgan damage i.e. acute renal failure and the patient was provided 2 L conservative IV fluid replacement instead of 4 L per the sepsis guidelines. Patient was also provided vancomycin and meropenem for antibiotic therapy. The patient has previous antibiotic allergies of erythromycin, levofloxacin and penicillin--with resultant urticaria. Reexamination of the patient after initiation of amiodarone does demonstrate improved heart rate at 106. The patient's blood pressure has been continually maintained and her mean arterial pressure has been appropriate in regards to perfusion. Cardiac enzymes were obtained as well as a proBNP and the proBNP did demonstrate a level of 33 681 most likely secondary to her atrial fibrillation with rapid ventricular response. Dr. Maravilla initially contacted [facility] in [facility] and was advised that there were no beds available. A follow-up call to [facility] was placed and upon my arrival here to the emergency department at 1800 he had not received a return call from [facility]. I did request that we contact [facility] in [facility] and I spoke with Dr. Lewis who accepted the patient to the medical intensive care unit on behalf of Dr. Sanchez. Medical Records I reviewed the patient's medical records. Lab Data I reviewed the patient's lab results. 04/27/23 14:33 04/27/23 14:33 Radiology Impressions Abdomen/Pelvis CT 04/27/23 15:46 IMPRESSION: 1. Peripancreatic edema and nonlocalized fluid consistent with pancreatitis. 2. Diverticulosis without diverticulitis. 3. Left hip arthroplasty changes. 4. Loya catheter in the urinary bladder 5. Coronary artery atherosclerotic calcifications. 6. Emphysematous changes. 7. Bibasilar atelectasis versus infiltrate. 8. Cholecystectomy. ADDENDUM: 04/27/23 1648 Findings reviewed on the phone with Dr Maravilla. We discussed the common bile duct is prominent at 16 mm. This may be due to a combination of patient age and cholecystectomy. Ultrasound and/or MRCP could further characterize this as clinically indicated. Exam appears negative for obstructing lesion. Laboratory Results WBC 43.63 10^3/uL (3.29-11.43) H* 04/27/23 14:33 RBC 5.31 10^6/uL (3.85-5.65) 04/27/23 14:33 Hgb 15.90 g/dL (11.27-16.99) 04/27/23 14:33 Hct 51.1 % (36-47) H 04/27/23 14:33 MCV 96.2 fl (85-98) 04/27/23 14:33 MCH 29.9 pg (27-33) 04/27/23 14:33 MCHC 31.1 g/dL (30-55) 04/27/23 14:33 RDW 14.8 % (12.1-15.1) 04/27/23 14:33 Plt Count 538 10^3/cmm (157-399) H 04/27/23 14:33 MPV 10.3 fL (7.4-10.4) 04/27/23 14:33 Neut % (Auto) 83.3 % 04/27/23 14:33 Lymph % (Auto) 5.1 % 04/27/23 14:33 Wharton % (Auto) 7.0 % 04/27/23 14:33 Eos % (Auto) 0.0 % 04/27/23 14:33 Baso % (Auto) 0.3 % 04/27/23 14:33 Neut # (Auto) 36.34 10^3/uL (1.8-7.7) H 04/27/23 14:33 Lymph # (Auto) 2.2 10^3/uL (0.8-4.8) 04/27/23 14:33 Wharton # (Auto) 3.1 10^3/uL (0.2-0.9) H 04/27/23 14:33 Eos # (Auto) 0.0 10^3/uL (0.0-0.8) 04/27/23 14:33 Baso # (Auto) 0.1 10^3/uL (0.0-0.1) 04/27/23 14:33 Nucleated RBC % (auto) 0 % 04/27/23 14: Nucleated RBCs # 0.0 /100WBC 04/27/23 14:33 Sodium 136 mmol/L (136-145) 04/27/23 14:33 Potassium 4.1 mmol/L (3.5-5.1) 04/27/23 14:33 Chloride 92 mmol/L (98-107) L 04/27/23 14:33 Carbon Dioxide 23 mmol/L (22-29) 04/27/23 14:33 Anion Gap 25.1 (5-19) H 04/27/23 14:33 BUN 21 mg/dL (8-23) 04/27/23 14:33 Creatinine 1.8 mg/dL (0.5-0.9) H 04/27/23 14:33 GFR Calculation Not Reportable 04/27/23 14:33 Glucose 163 mg/dL (65-115) H 04/27/23 14:33 Calculated Osmolality 289 mOsm/kg (285-295) 04/27/23 14:33 Lactic Acid 6.4 mmol/L (0.5-2.2) H* 04/27/23 14:33 Lactic Acid (Sepsis) 4.1 mmol/L (0.5-2.2) H* 04/27/23 18:42 Calcium 9.0 mg/dL (8.5-10.5) 04/27/23 14:33 Magnesium 1.9 mg/dL (1.7-2.3) 04/27/23 14:33 Total Bilirubin 4.6 mg/dL (0.15-1.2) H 04/27/23 14:33 AST 46 U/L (0-32) H 04/27/23 14:33 ALT 44 U/L (0-33) H 04/27/23 14:33 Alkaline Phosphatase 477 U/L (35-105) H 04/27/23 14:33 Troponin T Baseline 28 ng/L (0-10) H 04/27/23 14:33 Troponin T 120 Minute 29.88 ng/L (0-10) H 04/27/23 17:25 Delta Troponin T 1.88 ABS# (0-10) 04/27/23 17:25 NT-Pro-B Natriuret Pep 42141 pg/mL (0-450) H 04/27/23 14:33 Total Protein 6.6 g/dL (6.6-8.7) 04/27/23 14:33 Albumin 3.3 g/dL (3.5-5.2) L 04/27/23 14:33 Globulin 3.3 g/dL (1.3-4.6) 04/27/23 14:33 Lipase 194 U/L (13-60) H 04/27/23 14:33 All radiology interpretation(s) finalized by discharge Critical Care Time Critical Care Time: Critical Care Time: Yes Total Critical Care Time: 45 Attestation: The patients was emergently evaluated as this patient's presentation and case had a high probability of a clinically significant, sudden, or life threatening deterioration of this patient's initial critical presentation or condition which required my full and direct attention, intervention and personal management. Discharge Plan Discharge Patient Disposition: Xfer Short-Term Hosp Clinical Impression: Sepsis, Atrial fibrillation with rapid ventricular response, Acute renal failure, Acute pancreatitis, Congestive heart failure Condition: Stable Referrals: Josh Falk MD [Primary Care Provider] - Coding Level of Care Code ED Glass Rolling Machine Operator for Chg Fwd
[2023-04-27] MEDS: dilTIAZem 5 mg/mL SDV 5 mL 20 MG IVP (14:09)
[2023-04-27] MEDS: dilTIAZem 100 MG in sodium chloride 0.9% (add-van) 100 ML IV (14:17)
[2023-04-27 14:44] LABS: Basophils # 0.1 10^3/uL (0.0-0.1); Basophils % 0.3 %; Hematocrit 51.1 % (36-47); Lymphocytes # 2.2 10^3/uL (0.8-4.8); Lymphocytes % 5.1 %; Mean Corpuscular HGB Conc 31.1 g/dL (30-55); Mean Corpuscular Hemoglobin 29.9 pg (27-33); Mean Corpuscular Volume 96.2 fl (85-98); Mean Platelet Volume 10.3 fL (7.4-10.4); Monocytes # 3.1 10^3/uL (0.2-0.9); Neutrophils # 36.34 10^3/uL (1.8-7.7); Neutrophils % 83.3 %; Nucleated Red Blood Cells % 0 %; Platelet Count 538 10^3/cmm (157-399); Red Blood Count 5.31 10^6/uL (3.85-5.65); Red Cell Distribution Width 14.8 % (12.1-15.1)
[2023-04-27 14:58] LABS: Troponin(5th) Baseline 28 ng/L (0-10)
[2023-04-27] MEDS: amiodarone 50 mg/mL SDV 3 mL 150 MG IVP (14:59)
[2023-04-27 15:03] LABS: Alanine Aminotransferase 44 U/L (0-33); Albumin Level 3.3 g/dL (3.5-5.2); Alkaline Phosphatase 477 U/L (35-105); Aspartate Amino Transferase 46 U/L (0-32); Blood Urea Nitrogen 21 mg/dL (8-23); Carbon Dioxide 23 mmol/L (22-29); Chloride 92 mmol/L (98-107); Creatinine Clr Calc Pharmacy 37.5933; Globulin 3.3 g/dL (1.3-4.6); Glucose 163 mg/dL (65-115); Osmolality Calculated 289 mOsm/kg (285-295); Sodium 136 mmol/L (136-145); Total Bilirubin 4.6 mg/dL (0.15-1.2); Total Protein 6.6 g/dL (6.6-8.7)
[2023-04-27 15:17] LABS: White Blood Count 43.63 10^3/uL (3.29-11.43)
--- NOTE | 2023-04-27 15:24 | XR_ITS ---
WS: [id number] Portable AP semiupright chest, 04/27/2023 Clinical Data: dyspnea/cough Comparison: Portable chest, 08/01/2022 Findings: No nodules, masses or effusions are seen. The heart is normal. The pulmonary vascularity is not increased. No pneumonia or pneumothorax is seen. The aortic arch and descending thoracic aorta s how tortuosity and calcification. There are monitor leads on the chest wall. There is arthritic xavier e of the left shoulder. There is a dextroscoliosis of the thoracic spine. Impression: Atherosclerosis.
[2023-04-27 15:32] LABS: Anion Gap 25.1 (5-19); Potassium 4.1 mmol/L (3.5-5.1)
--- NOTE | 2023-04-27 15:46 | CTR_ITS ---
PROCEDURE INFORMATION: Exam: CT Abdomen And Pelvis Without Contrast Exam date and time: 04/27/2023 4:06 PM Age: 78 years old Clinical indication: Abdominal pain; Epigastric; Prior surgery; Surgery date: 6+ months; Surgery type: Eunice, hyst; Additional info: Leukocytosis TECHNIQUE: Imaging protocol: Computed tomography of the abdomen and pelvis without contrast. Radiation optimization: All CT scans at this facility use at least one of these dose optimization techniques: automated exposure control; mA and/or kV adjustment per patient size (includes targeted exams where dose is matched to clinical indication); or iterative reconstruction. COMPARISON: CR XR hip LT 2-3V wo/w pel* [id number] 05/13/2016 1:57 PM RADIATION DOSE METRICS: Total DLP (mGy-cm): 1309.1 FINDINGS: Lungs: Emphysematous changes. Bibasilar atelectasis versus infiltrate. Coronary arteries: Coronary artery atherosclerotic calcifications. Liver: Normal. No mass. Gallbladder and bile ducts: Cholecystectomy. Pancreas: Peripancreatic edema and nonlocalized fluid consistent with pancreatitis. Spleen: Normal. No splenomegaly. Adrenal glands: Normal. No mass. Kidneys and ureters: Normal. No hydronephrosis. Stomach and bowel: Diverticulosis without diverticulitis. Appendix: No evidence of appendicitis. Intraperitoneal space: Unremarkable. No free air. No significant fluid collection. Vasculature: Unremarkable. No abdominal aortic aneurysm. Lymph nodes: Unremarkable. No enlarged lymph nodes. Urinary bladder: Lyoa catheter in the urinary bladder Reproductive: Unremarkable as visualized. Bones/joints: Left hip arthroplasty changes. Soft tissues: Unremarkable. CT/CT abdomen pelvis wo con [id number] IMPRESSION: 1. Peripancreatic edema and nonlocalized fluid consistent with pancreatitis. 2. Diverticulosis without diverticulitis. 3. Left hip arthroplasty changes. 4. Loya catheter in the urinary bladder 5. Coronary artery atherosclerotic calcifications. 6. Emphysematous changes. 7. Bibasilar atelectasis versus infiltrate. 8. Cholecystectomy.
[2023-04-27 15:57] LABS: Magnesium 1.9 mg/dL (1.7-2.3)
[2023-04-27 16:07] LABS: Lactic Sepsis W/Reflex 6.4 mmol/L (0.5-2.2)
--- NOTE | 2023-04-27 16:13 | ECG_ITS ---
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 Measurements Intervals [place] Rate: 117 P: 44 NE: 149 QRS: 24 QRSD: 74 T: 82 QT: 324 QTc: 454 Interpretive Statements SINUS TACHYCARDIA WITH OCCASIONAL SUPRAVENTRICULAR PREMATURE COMPLEXES LOW QRS VOLTAGE IN PRECORDIAL LEADS [QRS DEFLECTION < 1.0 mV IN CHEST LEADS] NONSPECIFIC ST & T-WAVE ABNORMALITY ABNORMAL RHYTHM ECG Compared to ECG 04/27/2023 14:00:48 Supraventricular tachycardia no longer present T-wave abnormality still present Electronically Signed On 04-27-2023 22:19:13 CDT by Freya Wolff M.D. [id number]
[2023-04-27] MEDS: meropenem 1,000 MG in sodium chloride 0.9% (plus) 50 ML 100 MG IV (16:16)
[2023-04-27] MEDS: vancomycin 1,000 MG in sodium chloride 0.9% 250 ML 250 MG IV (16:17)
[2023-04-27 16:18] LABS: NT Pro B Type Natriuretic Pept 33681 pg/mL (0-450)
[2023-04-27 16:25] LABS: Lipase 194 U/L (13-60)
[2023-04-27] MEDS: sodium chloride 0.9% 1,000 ML 999 ML IV ×2 (16:40→17:11)
[2023-04-27 17:18] LABS: Reflex Lactate Order REFLEX LACTIC ORDERD
[2023-04-27 18:06] LABS: Troponin 5 2HR 29.88 ng/L (0-10); Troponin 5 2HR Delta 1.88 ABS# (0-10)
--- NOTE | 2023-04-27 19:01 | PC.NURSE ---
Assumed care from CRISTIANA Kirby at this time.
[2023-04-27 19:27] LABS: Lactic Acid level (Lactate) 4.1 mmol/L (0.5-2.2)
--- NOTE | 2023-04-27 19:32 | PC.NURSE ---
Report was called to Glenn Trotter RN at [facility].
--- NOTE | 2023-04-27 20:35 | PC.NURSE ---
[facility] gave verbal order to order additional bag of amiodarone for patient transport.
== END 2023-04-27 21:02 | disposition short-term general hospital (02) ==
PROVIDERS: Family Medicine; Emergency Provider Internal Medicine; PCP Internal Medicine
DX: A41.9 Sepsis, unspecified organism (principal); I48.20 Chronic atrial fibrillation, unspecified; N17.9 Acute kidney failure, unspecified; K85.90 Acute pancreatitis without necrosis or infection, unspecified; I13.0 Hypertensive heart and chronic kidney disease with heart failure and stage 1 through stage 4 chronic kidney disease, or unspecified chronic kidney disease; N18.2 Chronic kidney disease, stage 2 (mild); I50.9 Heart failure, unspecified; E78.5 Hyperlipidemia, unspecified
CPT/HCPCS: 36415; 71045; 74176; 80053; 83605; 83690; 83735; 83880; 84484; 85025; 87040; 93005; 96365; 96366; 96367; 96375; 99291; A4222; J0282; J0283; J2185; J3370; J3490; J7030; J7050